=== PATIENT | female | born 1995 | race Two or more races ===

== ENCOUNTER → 2024-07-08 | Emergency (ER) | payer OTHER ==
[~2024-07-08] VITALS: Ht 175.3 cm; Wt 74.8 kg
[~2024-07-08] MED LIST: SYNTHROID50 MCG PO; SYNTHROID75 MCG PO
[2024-07-08 09:03] VITALS: BP 118/79; O2SAT 100
[2024-07-08 10:08] LABS: HEMATOCRIT 38.4 % (36.0-45.00); MEAN CELL VOLUME 86.9 fL (80.00-100.00); MEAN CORPUSCULAR HEMOGLOBIN 29.6 pg (27.00-32.0); PLATELET COUNT 250 K/uL (150-450); RED BLOOD COUNT 4.41 M/uL (4.00-6.00); RED CELL DISTRIBUTION WIDTH 13.2 % (11.5-14.5)
[2024-07-08 10:40] LABS: ALBUMIN 3.5 gm/dL (3.4-5.0); BILIRUBIN TOTAL 0.33 mg/dL (0.3-1.2); CREATININE SERUM 0.85 mg/dL (0.55-1.02); GFR 78.53; GLOBULINA 3.9 G/DL (2.4-3.5); POTASSIUM 3.78 mEq/L (3.5-5.1); TOTAL PROTEIN 7.4 gm/dL (6.4-8.2)
[2024-07-08 10:58] LABS: PH,URINE 6.5 (5.0-8.0); URINE APPEARANCE Clear; URINE BILIRRUBIN Negative (NEGATIVE); URINE BLOOD Negative; URINE COLOR Yellow; URINE GLUCOSE Negative (NEGATIVE); URINE KETONE Negative (NEGATIVE); URINE LEUKOCYTE Trace; URINE NITRATE Negative; URINE PROTEIN Negative (NEGATIVE); URINE UROBILINOGEN 0.2 E.U./dl
[2024-07-08 11:02] LABS: URINE BACTERIA 701.7 uL (0.0-1933); URINE EPITHELIAL CELLS 15.4 uL (0.0-38.8); URINE RBC 3.8 uL (0.0-20.8); URINE WBC 26.1 uL (0.0-23.2)
[2024-07-08 11:10] LABS: URINE CAST 0.15 uL (0.0-1.40)
== END | disposition home or self-care (01) ==
LOC: ER 08:48
PROVIDERS: General Practice
DX: R53.1 Weakness (principal); E03.8 Other specified hypothyroidism; R51.9 Headache, unspecified; Z20.822 Contact with and (suspected) exposure to COVID-19